=== PATIENT | female | born 1975 | race Caucasian/White ===

== ENCOUNTER 2019-04-03 19:09 | Emergency (ER) | payer OTHER ==
[~2019-04-03] VITALS: Ht 172.7 cm; Wt 70.8 kg
--- NOTE | 2019-04-03 19:30 | NUR ---
PT BIBSELF C/O R ELBOW PAIN X 2 WEEK. -TRAUMA. PT AXO4. RESPIRATIONS EVEN AND UNLABORED. PT AMBULATORY WITH STEADY GAIT.PT FAMILY AT BEDSIDE. +ROM
--- NOTE | 2019-04-03 19:50 | NUR ---
XRAY AT BEDSIDE.
[2019-04-03] MEDS ORDERED: KETOROLAC TROMETHAMINE INJ 60 MG/2 ML VIAL IM ONE ×2 (19:57→20:00)
[2019-04-03 22:01] VITALS: BP 115/77
== END 2019-04-03 22:01 | disposition home or self-care (01) ==
LOC: ER 19:11
DX: M77.11 Lateral epicondylitis, right elbow (principal); Z90.89 Acquired absence of other organs
CPT/HCPCS: 73080; 93971; 96372; 99284; J1885

== ENCOUNTER 2020-04-04 13:15 | Emergency (ER) | payer OTHER ==
[~2020-04-04] VITALS: Ht 167.6 cm; Wt 73.5 kg
[2020-04-04 13:20] VITALS: BP 138/75
--- NOTE | 2020-04-04 13:38 | NUR ---
PT BIBSEFF S/P L THUMB LACERATION. APPLIED PRESSURE. PT STATES PAIN 07/19. VS CHECKED. AWAITING MD RAMOS.
[2020-04-04] MEDS ORDERED: TDAP [DIPH/PERTUSSIS/TET] 0.5 ML VIAL IM ONE ×2 (14:30→14:43)
[2020-04-04] MEDS ORDERED: BACI/NEOM/POLY B OINT PKT 1 UDPKT PACKET TP ONE (14:30)
[2020-04-04] MEDS ORDERED: BACI/NEOM/POLY B OINT PKT 1 UDPKT PACKET ONE (14:43)
== END 2020-04-04 14:51 | disposition home or self-care (01) ==
LOC: ER 13:20
DX: S61.012A Laceration without foreign body of left thumb without damage to nail, initial encounter (principal); Z90.89 Acquired absence of other organs; W26.8XXA Contact with other sharp object(s), not elsewhere classified, initial encounter; Y93.89 Activity, other specified; Y92.89 Other specified places as the place of occurrence of the external cause; Y99.8 Other external cause status
CPT/HCPCS: 90715

== ENCOUNTER 2023-11-14 09:27 | Emergency (ER) | payer MEDICAID, OTHER ==
[~2023-11-14] VITALS: Ht 175.3 cm; Wt 72.6 kg
[2023-11-14 10:08] LABS: BASOPHILS % (AUTO) 0.8 % (0.0-2.0); EOSINOPHILS # (AUTO) 0.1 K/uL (0.0-0.7); HEMATOCRIT 41 % (33-45); HEMOGLOBIN 13.4 g/dL (11.5-14.8); LYMPHOCYTES # (AUTO) 2.1 K/uL (0.8-4.8); LYMPHOCYTES % (AUTO) 40.9 % (20.0-44.0); MEAN CORPUSCULAR HEMOGLOBIN 29 PG (26.0-33.0); MEAN CORPUSCULAR HGB CONC 33 g/dl (31.0-36.0); MEAN CORPUSCULAR VOLUME 88 fL (82-100); MONOCYTES # (AUTO) 0.3 K/uL (0.1-1.30); MONOCYTES % (AUTO) 5.5 % (2.0-12.0); NEUTROPHILS # (AUTO) 2.6 K/uL (1.8-8.9); NEUTROPHILS % (AUTO) 51.8 % (43.0-81.0); PLATELET COUNT (AUTO) 268 K/uL (150-450); RED BLOOD CELL COUNT(AUTO) 4.61 MIL/uL (4.0-5.2); RED CELL DISTRIBUTION WIDTH 12.6 % (11.5-15.0); WHITE BLOOD COUNT (AUTO) 5.1 K/uL (4.3-11.0)
[2023-11-14 10:16] LABS: CALCIUM, SERUM 10.3 mg/dL (8.5-10.1); CARBON DIOXIDE 28 mmol/L (21-32); CHLORIDE 106 mmol/L (98-107); CREATININE 0.9 mg/dL (0.6-1.3); GLUCOSE 97 mg/dL (74-106); POTASSIUM 4.8 mmol/L (3.5-5.1); SODIUM SERUM 143 mmol/L (136-145); UREA NITROGEN, BLOOD 7 mg/dL (7-18)
[2023-11-14 11:38] VITALS: BP 116/75; TEMP 98.1; O2SAT 99
== END 2023-11-14 12:06 | disposition home or self-care (01) ==
LOC: ER 09:40
DX: R07.2 Precordial pain (principal); F43.9 Reaction to severe stress, unspecified; R00.2 Palpitations; R06.02 Shortness of breath; Z63.4 Disappearance and death of family member; Z90.89 Acquired absence of other organs
CPT/HCPCS: 36415; 71045-TC; 80048-TC; 84484-TC; 85025-TC